=== PATIENT | female | born 1950 | race Two or more races ===

== ENCOUNTER 2018-06-05 09:04 | Emergency (ER) | payer MEDICARE, OTHER ==
[~2018-06-05] VITALS: Ht 160 cm; Wt 58.1 kg
[~2018-06-05 09:04] MED LIST: LISI-646 PO; METF-370 PO; METO25TA5 PO; SIMV-8 PO
[2018-06-05 09:57] LABS: Basophils # (auto) 0 uL; Basophils % (auto) 0.2 % (0.0-2.0); Eosinophils # (auto) 0 uL; Eosinophils % (auto) 0.3 % (0.0-7.0); Hematocrit 40.5 % (36.0-46.0); Hemoglobin 13.3 g/dL (12.2-16.2); Lymphocytes # (auto) 0.7 uL; Lymphocytes % (auto) 6.9 % (10.0-50.0); Mean Corpuscular Hemoglobin 30.1 pg (28.0-32.0); Mean Corpuscular Volume 91.4 fL (80.0-100.0); Monocytes # (auto) 0.5 uL; Monocytes % (auto) 4.7 % (0.0-12.0); Neutrophils # (auto) 8.4 uL; Neutrophils % (auto) 87.9 % (37.0-80.0); Nucleated Red Blood Cells % 0.1 %; Platelet Count (auto) 172 10^3/uL (140-450); Red Blood Cells 4.43 10^6/uL (4.0-5.20); Red Cell Distribution Width 13.3 % (11.8-14.3); White Blood Cell 9.6 10^3/uL (4.4-10.8)
[2018-06-05 10:14] LABS: Alanine Aminotransferase 17 U/L (13-56); Albumin 3.9 g/dL (3.4-5.0); Anion Gap 6 (5-15); Blood Urea Nitrogen 12 mg/dL (7-18); Calcium 8.7 mg/dL (8.5-10.1); Carbon Dioxide 25 mmol/L (21-32); Chloride 100 mmol/L (98-107); Glucose 137 mg/dL (74-106); Magnesium 2.2 mg/dL (1.6-2.6); Sodium 131 mmol/L (136-145)
[2018-06-05 10:21] LABS: Alkaline Phosphatase 68 U/L (45-117); Aspartate Aminotransferase 22 U/L (15-37); BUN/Creatinine Ratio 11.7; Bilirubin, Total 1.2 mg/dL (0.2-1.0); GFR African American 69 mL/min; GFR Non-African American 57 mL/min; Total Protein 7.3 g/dL (6.4-8.2)
[2018-06-05 11:22] LABS: Urine Bacteria NONE SEEN /hpf (None Seen); Urine Blood Negative /uL (Negative); Urine Specific Gravity 1.015 (1.001-1.035); Urine WBC 1 /hpf (0 - 5)
[2018-06-05 11:33] VITALS: BP 145/78
== END 2018-06-05 12:06 | disposition home or self-care (01) ==
LOC: ER 09:04
DX: B34.9 Viral infection, unspecified (principal); E78.5 Hyperlipidemia, unspecified; I10 Essential (primary) hypertension; Z90.49 Acquired absence of other specified parts of digestive tract
CPT/HCPCS: 36415; 71045; 80053; 81001; 83735; 83880; 84484; 85025; 93005; 94761

== ENCOUNTER → 2019-12-02 | Outpatient (CLI) | payer MEDICARE, OTHER ==
[~2019-12-02] MED LIST changes: +CARB25TA22 PO
[2019-12-02 08:29] LABS: Basophils # (auto) 0 10 ^3/uL (0-0.2); Basophils % (auto) 0.4 % (0.0-2.0); Eosinophils # (auto) 0 10 ^3/uL (0-0.8); Eosinophils % (auto) 0.4 % (0.0-7.0); Hematocrit 43.6 % (36.0-46.0); Hemoglobin 14.5 g/dL (12.2-16.2); Lymphocytes # (auto) 0.9 10 ^3/uL (0.4-5.4); Lymphocytes % (auto) 18.5 % (10.0-50.0); Mean Corpuscular Hemoglobin 30.3 pg (28.0-32.0); Mean Corpuscular Hgb Conc. 33.3 g/dL (32.0-36.0); Mean Corpuscular Volume 91.1 fL (80.0-100.0); Monocytes # (auto) 0.4 10 ^3/uL (0-1.3); Monocytes % (auto) 7.2 % (0.0-12.0); Neutrophils # (auto) 3.7 10 ^3/uL (1.6-8.6); Neutrophils % (auto) 73.5 % (37.0-80.0); Platelet Count (auto) 168 10^3/uL (140-450); Red Blood Cells 4.78 10^6/uL (4.0-5.20); Red Cell Distribution Width 13.1 % (11.8-14.3)
[2019-12-02 08:35] LABS: Urine Bacteria FEW /hpf (None Seen); Urine Blood Negative /uL (Negative); Urine Specific Gravity 1.002 (1.001-1.035); Urine WBC 2 /hpf (0 - 5)
[2019-12-02 09:23] LABS: Albumin 4.2 g/dL (3.4-5.0)
[2019-12-02 09:30] LABS: BUN/Creatinine Ratio 11.1; Bilirubin, Total 1.1 mg/dL (0.2-1.0); Calcium 9.3 mg/dL (8.5-10.1); Total Protein 7.9 g/dL (6.4-8.2)
[2019-12-02 10:49] LABS: Free T4 (Free Thyroxine) 1.3 ng/dL (0.89-1.76)
[2019-12-02 10:50] LABS: Folate (Folic Acid) 21.57 ng/mL (5.38-24)
[2019-12-03 06:06] LABS: RPR Non Reactive (Non Reactive)
== END | disposition home or self-care (01) ==
LOC: LAB 07:54
PROVIDERS: ATTEND Internal Medicine
DX: R41.3 Other amnesia (principal); E78.5 Hyperlipidemia, unspecified
CPT/HCPCS: 36415; 80053; 80061; 81001; 82607; 82746; 84439; 84443; 85025; 85652; 86592

== ENCOUNTER 2020-02-11 10:59 | Inpatient (IN) | payer MEDICARE, OTHER ==
[~2020-02-11] VITALS: Ht 10.2 cm; Wt 49.8 kg
[~2020-02-11 10:59] MED LIST changes: -CARB25TA22 PO
[2020-02-11 11:55] LABS: Basophils # (auto) 0 10 ^3/uL (0-0.2); Basophils % (auto) 0.9 % (0.0-2.0); Eosinophils # (auto) 0 10 ^3/uL (0-0.8); Eosinophils % (auto) 0.3 % (0.0-7.0); Hematocrit 41.3 % (36.0-46.0); Hemoglobin 13.9 g/dL (12.2-16.2); Lymphocytes # (auto) 0.7 10 ^3/uL (0.4-5.4); Lymphocytes % (auto) 15.1 % (10.0-50.0); Mean Corpuscular Hemoglobin 30.9 pg (28.0-32.0); Mean Corpuscular Hgb Conc. 33.7 g/dL (32.0-36.0); Mean Corpuscular Volume 91.7 fL (80.0-100.0); Monocytes # (auto) 0.3 10 ^3/uL (0-1.3); Monocytes % (auto) 5.6 % (0.0-12.0); Neutrophils # (auto) 3.5 10 ^3/uL (1.6-8.6); Neutrophils % (auto) 78.1 % (37.0-80.0); Nucleated Red Blood Cells % 0.1 %; Platelet Count (auto) 206 10^3/uL (140-450); Red Cell Distribution Width 13.5 % (11.8-14.3); White Blood Cell 4.5 10^3/uL (4.4-10.8)
[2020-02-11 12:10] LABS: INR 1.02 (0.9-1.15); Partial Thromboplastin Time 24.1 sec (23.0-31.2)
[2020-02-11 12:14] LABS: Albumin 4.3 g/dL (3.4-5.0); Anion Gap 5 (5-15); Blood Urea Nitrogen 12 mg/dL (7-18); Calcium 8.9 mg/dL (8.5-10.1); Carbon Dioxide 28 mmol/L (21-32); Chloride 98 mmol/L (98-107); Glucose 112 mg/dL (74-106); Magnesium 2.4 mg/dL (1.6-2.6); Sodium 131 mmol/L (136-145)
[2020-02-11 12:20] LABS: Alanine Aminotransferase 11 U/L (13-56); Alkaline Phosphatase 78 U/L (45-117); Aspartate Aminotransferase 19 U/L (15-37); Bilirubin, Total 0.8 mg/dL (0.2-1.0); GFR African American 78 mL/min; GFR Non-African American 64 mL/min; Total Protein 7.8 g/dL (6.4-8.2)
[2020-02-11 14:40] LABS: Urine Bacteria NONE SEEN /hpf (None Seen); Urine Blood TRACE /uL (Negative); Urine Specific Gravity 1.007 (1.001-1.035); Urine WBC 2 /hpf (0 - 5)
[2020-02-11] MEDS ORDERED: CIPROFLOXACIN HCL 500 MG TAB PO ONE (15:00)
[2020-02-11] MEDS ORDERED: ASPirin 81 mg TAB PO ONE (15:00)
[2020-02-11 15:27] LABS: INR 1.01 (0.9-1.15); Partial Thromboplastin Time 27.1 sec (23.0-31.2)
[2020-02-11 15:31] LABS: Blood Alcohol < 3.0 mg/dL (0-5); Magnesium 2.5 mg/dL (1.6-2.6)
[2020-02-11] MEDS ORDERED: MORPHINE SULF INJ 2 MG/ML SYRINGE 1ML IV PRN ×2 (15:45→16:45)
[2020-02-11] MEDS: NITROGLYCERIN 0.4 MG SL TAB SL PRN ×2 (16:17→17:38)
[2020-02-11] MEDS ORDERED: LABETALOL HCL 5 MG/ML 4ML SYRINGE IV ONE (16:30)
[2020-02-11] MEDS ORDERED: METOPROLOL TARTRATE 50 MG TAB PO ONE (16:30)
[2020-02-11] MEDS ORDERED: traMADol HCL 50 MG TAB PO PRN (16:45)
[2020-02-11] MEDS ORDERED: ACETAMINOPHEN 500 MG TAB PO PRN (16:45)
[2020-02-11] MEDS ORDERED: ONDANSETRON HCL 4 MG/2 ML VIAL IV PRN (16:45)
[2020-02-11] MEDS ORDERED: cefTRIAXone 1GM/50ML D5W 50 ML IV ONE (16:45)
[2020-02-11] MEDS ORDERED: LACTULOSE 20Gm/30ML SOLN PO PRN (16:45)
[2020-02-11] MEDS ORDERED: DEXTROSE (50%) 50ML SYRG IV PRN (16:45)
[2020-02-11] MEDS: InsuLIN REG 1unit/0.01ml Soln (100units/ml) SC SCH ×2 (17:00→21:35)
[2020-02-11] MEDS: ACCU-CHEK COMFORT CURVE STRIP VI SCH ×2 (17:10→21:35)
[2020-02-11] MEDS: LISINOPRIL 20 MG TAB PO SCH (17:20)
[2020-02-11] MEDS: SODIUM CHLORIDE 0.9% 1,000 ML IV SCH (17:31)
[2020-02-11] MEDS: LABETALOL HCL 5 MG/ML ML 20ML VIAL IV PRN (18:16)
[2020-02-11 20:16] VITALS: BP 141/72
[2020-02-11 21:10] LABS: CRP High Sensitivity < 0.02 mg/dL (< 0.3)
[2020-02-11] MEDS: ATORVASTATIN 20 MG TAB PO SCH (21:34)
[2020-02-11] MEDS: METOPROLOL TARTRATE 25 MG TAB PO SCH (21:35)
[2020-02-11] MEDS: FAMOTIDINE 20 MG TAB PO SCH (21:35)
[2020-02-11 22:00] VITALS: BP 141/72
[2020-02-12] MEDS ORDERED: CARB25TA22 PO (00:39)
[2020-02-12 05:00] VITALS: BP 137/82
[2020-02-12] MEDS: SODIUM CHLORIDE 0.9% 1,000 ML IV SCH ×2 (05:59→16:43)
[2020-02-12 06:05] LABS: Cholesterol 145 mg/dL (< 200); HDL Cholesterol 77 mg/dL (40-59); LDL Cholesterol 70 mg/dL (< 100); Triglycerides 51 mg/dL (< 150)
[2020-02-12] MEDS: InsuLIN REG 1unit/0.01ml Soln (100units/ml) SC SCH ×4 (06:10→22:00)
[2020-02-12] MEDS: ACCU-CHEK COMFORT CURVE STRIP VI SCH ×4 (06:10→22:25)
[2020-02-12] MEDS: ASPirin 81 mg TAB PO SCH (09:54)
[2020-02-12] MEDS: cefTRIAXone 1GM/50ML D5W 50 ML IV SCH (09:54)
[2020-02-12] MEDS: FAMOTIDINE 20 MG TAB PO SCH ×2 (09:54→22:20)
[2020-02-12] MEDS: NITROGLYCERIN 0.2MG/HR TOPICAL PATCH TD SCH (09:55)
[2020-02-12] MEDS: METOPROLOL TARTRATE 25 MG TAB PO SCH ×2 (09:55→22:20)
[2020-02-12] MEDS: ENOXAPARIN SOD 40 MG/0.4 ML SYRINGE SC SCH (09:55)
[2020-02-12] MEDS: LISINOPRIL 20 MG TAB PO SCH (09:55)
[2020-02-12 17:00] VITALS: BP 161/78
[2020-02-12 22:00] VITALS: BP 149/75
[2020-02-12] MEDS: ATORVASTATIN 20 MG TAB PO SCH (22:20)
[2020-02-13] VITALS (7 sets, daily range): BP systolic 111–183; BP diastolic 62–99
[2020-02-13] MEDS: LABETALOL HCL 5 MG/ML ML 20ML VIAL IV PRN (04:46)
[2020-02-13] MEDS: ACCU-CHEK COMFORT CURVE STRIP VI SCH ×4 (06:10→22:12)
[2020-02-13] MEDS: InsuLIN REG 1unit/0.01ml Soln (100units/ml) SC SCH ×4 (06:10→22:00)
[2020-02-13] MEDS ORDERED: ADENOSINE 41 MG in GIVE UN-DILUTED 0 ML IV STA (08:15)
[2020-02-13] MEDS: NITROGLYCERIN 0.2MG/HR TOPICAL PATCH TD SCH (10:00)
[2020-02-13] MEDS: SODIUM CHLORIDE 0.9% 1,000 ML IV SCH ×2 (11:17→22:12)
[2020-02-13] MEDS: FAMOTIDINE 20 MG TAB PO SCH ×2 (11:34→22:06)
[2020-02-13] MEDS: ASPirin 81 mg TAB PO SCH (11:35)
[2020-02-13] MEDS: METOPROLOL TARTRATE 25 MG TAB PO SCH ×2 (11:35→22:07)
[2020-02-13] MEDS: ENOXAPARIN SOD 40 MG/0.4 ML SYRINGE SC SCH (11:35)
[2020-02-13] MEDS: LISINOPRIL 20 MG TAB PO SCH (11:36)
[2020-02-13] MEDS: cefTRIAXone 1GM/50ML D5W 50 ML IV SCH (11:36)
[2020-02-13] MEDS: ATORVASTATIN 20 MG TAB PO SCH (22:06)
[2020-02-14 05:04] VITALS: BP 135/70
[2020-02-14] MEDS: ACCU-CHEK COMFORT CURVE STRIP VI SCH ×4 (06:07→21:18)
[2020-02-14] MEDS: InsuLIN REG 1unit/0.01ml Soln (100units/ml) SC SCH ×4 (06:07→21:37)
[2020-02-14] MEDS: cefTRIAXone 1GM/50ML D5W 50 ML IV SCH (08:35)
[2020-02-14 09:00] VITALS: BP 146/74
[2020-02-14] MEDS: METOPROLOL TARTRATE 25 MG TAB PO SCH ×2 (10:03→21:13)
[2020-02-14] MEDS: ENOXAPARIN SOD 40 MG/0.4 ML SYRINGE SC SCH (10:03)
[2020-02-14] MEDS: FAMOTIDINE 20 MG TAB PO SCH ×2 (10:04→21:13)
[2020-02-14] MEDS: LISINOPRIL 20 MG TAB PO SCH (10:04)
[2020-02-14] MEDS: ASPirin 81 mg TAB PO SCH (10:05)
[2020-02-14] MEDS: NITROGLYCERIN 0.2MG/HR TOPICAL PATCH TD SCH (10:06)
[2020-02-14] MEDS: SODIUM CHLORIDE 0.9% 1,000 ML IV SCH (11:21)
[2020-02-14 13:00] VITALS: BP 144/70
[2020-02-14] MEDS: LABETALOL HCL 5 MG/ML ML 20ML VIAL IV PRN (16:38)
[2020-02-14 17:00] VITALS: BP 171/88
[2020-02-14] MEDS: ATORVASTATIN 20 MG TAB PO SCH (21:14)
[2020-02-14 22:00] VITALS: BP 152/86
[2020-02-15] MEDS: SODIUM CHLORIDE 0.9% 1,000 ML IV SCH (00:41)
[2020-02-15 05:30] VITALS: BP 153/71
[2020-02-15] MEDS: ACCU-CHEK COMFORT CURVE STRIP VI SCH ×2 (05:31→11:30)
[2020-02-15] MEDS: InsuLIN REG 1unit/0.01ml Soln (100units/ml) SC SCH ×2 (05:32→11:30)
[2020-02-15] MEDS: cefTRIAXone 1GM/50ML D5W 50 ML IV SCH (09:08)
[2020-02-15] MEDS: ASPirin 81 mg TAB PO SCH (09:08)
[2020-02-15] MEDS: METOPROLOL TARTRATE 25 MG TAB PO SCH (09:09)
[2020-02-15] MEDS: FAMOTIDINE 20 MG TAB PO SCH (09:09)
[2020-02-15] MEDS: ENOXAPARIN SOD 40 MG/0.4 ML SYRINGE SC SCH (09:10)
[2020-02-15] MEDS: NITROGLYCERIN 0.2MG/HR TOPICAL PATCH TD SCH (09:10)
[2020-02-15] MEDS: LISINOPRIL 20 MG TAB PO SCH (09:20)
== END 2020-02-15 13:00 | disposition home or self-care (01) | DRG 305 ==
LOC: ER 10:59 → TELE 11:00 → TELE-WESTW 20:15
PROVIDERS: ADMIT Internal Medicine; ATTEND Family Medicine
DX: I16.0 Hypertensive urgency (principal); E87.1 Hypo-osmolality and hyponatremia; N30.00 Acute cystitis without hematuria; E78.5 Hyperlipidemia, unspecified; I10 Essential (primary) hypertension; G20 Parkinson's disease; F02.80 Dementia in other diseases classified elsewhere, unspecified severity, without behavioral disturbance, psychotic disturbance, mood disturbance, and anxiety; Z79.899 Other long term (current) drug therapy; Z82.49 Family history of ischemic heart disease and other diseases of the circulatory system; Z90.49 Acquired absence of other specified parts of digestive tract; I07.1 Rheumatic tricuspid insufficiency
CPT/HCPCS: 36415; 70450; 71046; 78452; 80053; 80061; 80320; 81001; 82533; 82550; 82962; 83036; 83735; 83880; 84443; 84484; 85025; 85610; 85652; 85730; 86141; 87086; 93005; 93017; 93306; 93975; G0378; J0153; J0696; J3490

== ENCOUNTER → 2020-02-27 | Outpatient (CLI) | payer MEDICARE, OTHER ==
[~2020-02-27] MED LIST changes: +CARB25TA22 PO; -LISI-646 PO; -METF-370 PO; -SIMV-8 PO
[2020-02-27 16:40] LABS: Urine Bacteria NONE SEEN /hpf (None Seen); Urine Blood TRACE /uL (Negative); Urine Specific Gravity 1.005 (1.001-1.035); Urine WBC 1 /hpf (0 - 5)
== END | disposition home or self-care (01) ==
LOC: LAB 16:13
PROVIDERS: ATTEND Nurse Practitioner Family
DX: N39.0 Urinary tract infection, site not specified (principal)
CPT/HCPCS: 81001; 87086

== ENCOUNTER → 2020-03-08 | Outpatient (CLI) | payer MEDICARE, OTHER ==
[2020-03-08 11:52] LABS: Urine Bacteria NONE SEEN /hpf (None Seen); Urine Blood Negative /uL (Negative); Urine Specific Gravity 1.009 (1.001-1.035); Urine WBC 1 /hpf (0 - 5)
== END | disposition home or self-care (01) ==
LOC: LAB 11:38
PROVIDERS: ATTEND Internal Medicine
DX: R31.29 Other microscopic hematuria (principal)
CPT/HCPCS: 81001

== ENCOUNTER 2020-11-08 19:26 | Emergency (ER) | payer MEDICARE, OTHER ==
[~2020-11-08] VITALS: Ht 160 cm; Wt 54.4 kg
[2020-11-08 20:41] LABS: Basophils # (auto) 0 10 ^3/uL (0-0.2); Basophils % (auto) 0.3 % (0.0-2.0); Eosinophils # (auto) 0 10 ^3/uL (0-0.8); Eosinophils % (auto) 0.3 % (0.0-7.0); Hematocrit 37.3 % (36.0-46.0); Hemoglobin 12.9 g/dL (12.2-16.2); Lymphocytes % (auto) 13.4 % (10.0-50.0); Mean Corpuscular Hemoglobin 30.3 pg (28.0-32.0); Mean Corpuscular Hgb Conc. 34.6 g/dL (32.0-36.0); Mean Corpuscular Volume 87.6 fL (80.0-100.0); Monocytes # (auto) 0.4 10 ^3/uL (0-1.3); Monocytes % (auto) 4.8 % (0.0-12.0); Neutrophils # (auto) 5.9 10 ^3/uL (1.6-8.6); Neutrophils % (auto) 81.2 % (37.0-80.0); Platelet Count (auto) 157 10^3/uL (140-450); Red Blood Cells 4.26 10^6/uL (4.0-5.20); Red Cell Distribution Width 13.8 % (11.8-14.3); White Blood Cell 7.3 10^3/uL (4.4-10.8)
[2020-11-08 20:52] LABS: Calcium 8.6 mg/dL (8.5-10.1); Chloride 100 mmol/L (98-107); Sodium 133 mmol/L (136-145)
[2020-11-08 20:59] LABS: Alanine Aminotransferase 20 U/L (13-56); Albumin 3.9 g/dL (3.4-5.0); Alkaline Phosphatase 85 U/L (45-117); Amylase 58 U/L (25-115); Anion Gap 10 (5-15); Aspartate Aminotransferase 26 U/L (15-37); BUN/Creatinine Ratio 20.7; Bilirubin, Total 0.4 mg/dL (0.2-1.0); Blood Alcohol < 3.0 mg/dL (0-5); Blood Urea Nitrogen 18 mg/dL (7-18); Carbon Dioxide 23 mmol/L (21-32); GFR African American 83 mL/min; GFR Non-African American 68 mL/min; Glucose 145 mg/dL (74-106); Lipase 133 U/L (73-393); Magnesium 2.3 mg/dL (1.6-2.6); Total Protein 7.5 g/dL (6.4-8.2)
[2020-11-08] MEDS ORDERED: ONDANSETRON HCL 4 MG/2 ML VIAL IV ONE ×2 (21:45→22:45)
[2020-11-08 22:50] LABS: Partial Thromboplastin Time 25.1 sec (23.0-31.2)
[2020-11-08] MEDS ORDERED: LABETALOL HCL 5 MG/ML 4ML SYRINGE IV ONE (23:15)
[2020-11-08 23:53] LABS: Urine Amorphous Crystal FEW /hpf (None Seen); Urine Bacteria FEW /hpf (None Seen); Urine Blood Negative /uL (Negative); Urine Specific Gravity 1.019 (1.001-1.035); Urine WBC 1 /hpf (0 - 5)
[2020-11-09 00:05] LABS: Alcohol, Urine < 3.0 mg/dL (0-10); Amphetamine Screen, Urine NEGATIVE (NEGATIVE); Barbiturate Scree,Urine NEGATIVE (NEGATIVE); Benzodiazephine Screen, Urine NEGATIVE (NEGATIVE); Cannabinoid Screen, Urine NEGATIVE (NEGATIVE); Cocaine Screen, Urine NEGATIVE (NEGATIVE); Opiate Scree,Urine NEGATIVE (NEGATIVE); Phencyclidine Screen, Urine NEGATIVE (NEGATIVE)
[2020-11-09] MEDS ORDERED: levETIRAcetam 500 MG/5ML INJ IV ONE (01:13)
[2020-11-09 01:31] VITALS: BP 117/50
== END 2020-11-09 01:53 | disposition short-term general hospital (02) ==
LOC: EDBD 19:26 → ER 19:26
DX: R41.82 Altered mental status, unspecified (principal); R11.2 Nausea with vomiting, unspecified; F03.90 Unspecified dementia, unspecified severity, without behavioral disturbance, psychotic disturbance, mood disturbance, and anxiety; I10 Essential (primary) hypertension; E11.9 Type 2 diabetes mellitus without complications; E78.5 Hyperlipidemia, unspecified; Z90.49 Acquired absence of other specified parts of digestive tract; Z79.899 Other long term (current) drug therapy
CPT/HCPCS: 36415; 70450; 71045; 80053; 80307; 80320; 81001; 82150; 82962; 83605; 83690; 83735; 84484; 85025; 85379; 85610; 85730; 87040; 93005; 96365; 96375; 99285; J1953; J2405; J3490; J7050; J7060